=== PATIENT | female | born 1990 | race Native Hawaiian/Other Pacific Islander ===

== ENCOUNTER 2020-02-14 00:46 | Emergency (ER) | payer OTHER ==
[~2020-02-14] VITALS: Ht 162.6 cm; Wt 50.3 kg
[2020-02-14 01:49] LABS: PLATELET COUNT 246 K/uL (152-353)
[2020-02-14 01:53] LABS: POTASSIUM 4.1 mmol/L (3.6-5.2)
[2020-02-14 04:57] VITALS: BP 109/77; TEMP 98.4
== END 2020-02-14 04:57 | disposition home or self-care (01) ==
LOC: ED 00:46
PROVIDERS: Family Medicine
DX: K59.09 Other constipation (principal)
CPT/HCPCS: 36415; 80053; 81000; 81025; 82150; 83690; 85027; 96372; 99283; J1885; Q9963

== ENCOUNTER 2021-09-19 08:17 | Outpatient (CLI) | payer OTHER ==
[2021-09-19 08:59] LABS: PLATELET COUNT 274 K/uL (152-353)
[2021-09-19 09:13] LABS: POTASSIUM 3.8 mmol/L (3.6-5.2)
== END 2021-09-19 21:17 | disposition home or self-care (01) ==
LOC: LABW 08:17
PROVIDERS: ATTEND Family Medicine
DX: R51.9 Headache, unspecified (principal); K50.90 Crohn's disease, unspecified, without complications; F41.9 Anxiety disorder, unspecified; R53.83 Other fatigue; R03.0 Elevated blood-pressure reading, without diagnosis of hypertension; G89.4 Chronic pain syndrome; E55.9 Vitamin D deficiency, unspecified; K92.9 Disease of digestive system, unspecified
CPT/HCPCS: 36415; 80053; 80061; 81000; 82306; 82607; 82746; 84439; 84443; 85027